=== PATIENT | female | born 1955 | race Two or more races ===

== ENCOUNTER 2016-10-18 13:51 | Emergency (ER) | payer MEDICAID ==
[~2016-10-18] VITALS: Ht 162.6 cm; Wt 77.1 kg
[2016-10-18 14:00] VITALS: BP 114/75
== END 2016-10-18 16:25 | disposition home or self-care (01) ==
LOC: ER 13:51
DX: S16.1XXA Strain of muscle, fascia and tendon at neck level, initial encounter (principal); S63.502A Unspecified sprain of left wrist, initial encounter; M17.11 Unilateral primary osteoarthritis, right knee; M47.892 Other spondylosis, cervical region; E07.89 Other specified disorders of thyroid; W01.0XXA Fall on same level from slipping, tripping and stumbling without subsequent striking against object, initial encounter; Y93.89 Activity, other specified; Y99.8 Other external cause status; Y92.009 Unspecified place in unspecified non-institutional (private) residence as the place of occurrence of the external cause
CPT/HCPCS: 72040; 73110; 73130; 73562

== ENCOUNTER 2017-03-02 15:50 | Emergency (ER) | payer MEDICAID ==
[~2017-03-02] VITALS: Ht 167.6 cm; Wt 77.1 kg
[2017-03-02 16:11] VITALS: BP 133/85
[2017-03-02] MEDS ORDERED: TETANUS-DIPTH-ACEL PERTUSSIS 0.5ML SYRG IM ONE (16:30)
[2017-03-02] MEDS ORDERED: cefTRIAXone SOD 1,000 MG VL IM ONE (16:30)
== END 2017-03-02 16:57 | disposition home or self-care (01) ==
LOC: ER 15:52
DX: S71.151A Open bite, right thigh, initial encounter (principal); L08.9 Local infection of the skin and subcutaneous tissue, unspecified; E07.9 Disorder of thyroid, unspecified; Z23 Encounter for immunization; W57.XXXA Bitten or stung by nonvenomous insect and other nonvenomous arthropods, initial encounter; Y93.89 Activity, other specified; Y99.8 Other external cause status; Y92.89 Other specified places as the place of occurrence of the external cause
CPT/HCPCS: 90471; 90715; 96372; 99284; J0696

== ENCOUNTER 2017-08-07 12:22 | Emergency (ER) | payer MEDICAID ==
[~2017-08-07] VITALS: Ht 167.6 cm; Wt 74.4 kg
[2017-08-07 12:31] VITALS: BP 146/99
[2017-08-07] MEDS ORDERED: TETRACAINE HCL 0.5% OPTH(EYE) SOLN 4ML EACHEYE ONE (15:00)
[2017-08-07] MEDS ORDERED: FLUORESCEIN SOD 1 MG TEST STRIP OP ONE (15:00)
== END 2017-08-07 15:29 | disposition home or self-care (01) ==
LOC: ER 12:22
DX: S05.01XA Injury of conjunctiva and corneal abrasion without foreign body, right eye, initial encounter (principal); R51 Headache; X58.XXXA Exposure to other specified factors, initial encounter; Y93.89 Activity, other specified; Y92.89 Other specified places as the place of occurrence of the external cause; Y99.8 Other external cause status
CPT/HCPCS: 70450; 81002; 82962

== ENCOUNTER 2018-12-28 13:34 | Inpatient (IN) | payer MEDICAID ==
[~2018-12-28] VITALS: Ht 165.1 cm; Wt 79.1 kg
[2018-12-28 14:15] LABS: Basophils # (auto) 0.1 uL; Basophils % (auto) 0.8 % (0.0-2.0); Eosinophils # (auto) 0 uL; Eosinophils % (auto) 0.5 % (0.0-7.0); Hematocrit 45.5 % (36.0-46.0); Hemoglobin 15.9 g/dL (12.2-16.2); Lymphocytes # (auto) 3.4 uL; Lymphocytes % (auto) 40.6 % (10.0-50.0); Mean Corpuscular Hemoglobin 32.8 pg (28.0-32.0); Mean Corpuscular Hgb Conc. 34.9 g/dL (32.0-36.0); Mean Corpuscular Volume 93.9 fL (80.0-100.0); Monocytes # (auto) 0.6 uL; Monocytes % (auto) 7.8 % (0.0-12.0); Neutrophils # (auto) 4.2 uL; Neutrophils % (auto) 50.3 % (37.0-80.0); Nucleated Red Blood Cells % 0.1 %; Platelet Count (auto) 283 10^3/uL (140-450); Red Blood Cells 4.84 10^6/uL (4.0-5.20); Red Cell Distribution Width 13.3 % (11.8-14.3); White Blood Cell 8.3 10^3/uL (4.4-10.8)
[2018-12-28] MEDS ORDERED: ASPirin 81 mg TAB PO ONE (14:15)
[2018-12-28 14:31] LABS: Albumin 4.6 g/dL (3.4-5.0); Anion Gap 8 (5-15); Blood Urea Nitrogen 10 mg/dL (7-18); Calcium 9.2 mg/dL (8.5-10.1); Carbon Dioxide 22 mmol/L (21-32); Chloride 107 mmol/L (98-107); Glucose 101 mg/dL (74-106); Magnesium 2.4 mg/dL (1.6-2.6); Potassium 4.2 mmol/L (3.5-5.1); Sodium 137 mmol/L (136-145)
[2018-12-28 14:33] LABS: INR 0.93 (0.9-1.15); Partial Thromboplastin Time 27.9 sec (23.78-33.04)
[2018-12-28 14:36] LABS: Alanine Aminotransferase 23 U/L (13-56); Alkaline Phosphatase 105 U/L (45-117); Aspartate Aminotransferase 21 U/L (15-37); BUN/Creatinine Ratio 13.7; Bilirubin, Total 0.4 mg/dL (0.2-1.0); GFR African American 104 mL/min; GFR Non-African American 86 mL/min; Total Protein 8.6 g/dL (6.4-8.2)
[2018-12-28] MEDS ORDERED: NITROGLYCERIN 0.4 MG SL TAB SL PRN (15:15)
[2018-12-28] MEDS ORDERED: MORPHINE SULF INJ 2 MG/ML SYRINGE 1ML IV PRN (15:15)
--- NOTE | 2018-12-28 18:03 | NUR ---
Telemetry admit from [facility] admitted to Telemetry unit after SBAR received. Patient oriented to LITZY EVANS RN primary RN, unit, room, bed, and unit policies regarding patient care and visiting hours. Patient now on continuous telemetry monitoring, tele box # 2 and telemetry reading on arrival to unit is SR 84. Patient weighed by bedscale and encouraged to call if they need something. All questions and concerns addressed, patient verbalized understanding.
[2018-12-28 18:13] VITALS: BP 143/90
[2018-12-28] MEDS ORDERED: LORazepam 2MG/ML-1ML VIAL IV PRN (20:30)
[2018-12-28] MEDS: LORazepam 0.5 MG TAB PO PRN (20:48)
[2018-12-28 21:00] VITALS: BP 123/75
[2018-12-28] MEDS: ATORVASTATIN 20 MG TAB PO SCH (23:03)
[2018-12-29 04:51] VITALS: BP 114/72
[2018-12-29 06:22] LABS: Basophils # (auto) 0 uL; Basophils % (auto) 0.7 % (0.0-2.0); Eosinophils # (auto) 0.1 uL; Hematocrit 40.3 % (36.0-46.0); Hemoglobin 14.1 g/dL (12.2-16.2); Lymphocytes # (auto) 2.3 uL; Lymphocytes % (auto) 44.4 % (10.0-50.0); Mean Corpuscular Hemoglobin 32.8 pg (28.0-32.0); Mean Corpuscular Volume 93.6 fL (80.0-100.0); Monocytes # (auto) 0.4 uL; Monocytes % (auto) 7.7 % (0.0-12.0); Neutrophils # (auto) 2.3 uL; Neutrophils % (auto) 45.2 % (37.0-80.0); Nucleated Red Blood Cells % 0.1 %; Platelet Count (auto) 249 10^3/uL (140-450); Red Blood Cells 4.31 10^6/uL (4.0-5.20); Red Cell Distribution Width 13.2 % (11.8-14.3); White Blood Cell 5.2 10^3/uL (4.4-10.8)
[2018-12-29 06:51] LABS: Potassium 3.8 mmol/L (3.5-5.1)
[2018-12-29 07:03] LABS: Albumin 3.8 g/dL (3.4-5.0); BUN/Creatinine Ratio 24.2; Bilirubin, Total 0.7 mg/dL (0.2-1.0); Calcium 8.9 mg/dL (8.5-10.1); Magnesium 2.5 mg/dL (1.6-2.6); Total Protein 7.1 g/dL (6.4-8.2)
--- NOTE | 2018-12-29 07:20 | NUR ---
OPENING SHIFT NOTE RECEIVED REPORT ON PATIENT, AWAKE AND SITTING UP IN BED. NO SIGNS OF DISTRESS AT THIS TIME. DISCUSSED POC WITH PATIENT INCLUDING PLANS FOR MRI AND ECHO. PATIENT VERBALIZED UNDERSTANDING. BED IN LOWEST LOCKED POSITION, SIDE RAILS UP X 2, CALL LIGHT WITHIN REACH. WILL CONTINUE TO MONITOR.
--- NOTE | 2018-12-29 08:57 | NUR ---
Paged Speech Therapy Paged to inform speech therapy of order for speech eval. Call was transferred to physical therapy. Spoke with Shukri who stated the patient is on the list of people speech therapist is to see today. Verbalized understanding.
[2018-12-29 09:00] VITALS: BP 119/50
[2018-12-29] MEDS: ASPirin 81 mg TAB PO SCH (09:56)
--- NOTE | 2018-12-29 10:54 | NUR ---
Patient Taken Down To MRI Patient taken down to MRI via wheelchair. PRN Ativan given.
[2018-12-29 13:00] VITALS: BP 100/63
[2018-12-29 16:56] VITALS: BP 95/68
[2018-12-29 20:00] VITALS: BP 98/53
[2018-12-29] MEDS: ATORVASTATIN 20 MG TAB PO SCH (21:15)
[2018-12-29 21:46] VITALS: BP 98/53
[2018-12-29] MEDS: LORazepam 0.5 MG TAB PO PRN (21:58)
[2018-12-30 05:01] VITALS: BP 128/72
[2018-12-30 06:21] LABS: Basophils # (auto) 0 uL; Eosinophils # (auto) 0.1 uL; Eosinophils % (auto) 2.3 % (0.0-7.0); Hematocrit 39.9 % (36.0-46.0); Hemoglobin 13.9 g/dL (12.2-16.2); Lymphocytes # (auto) 2.3 uL; Lymphocytes % (auto) 49.2 % (10.0-50.0); Mean Corpuscular Hemoglobin 32.5 pg (28.0-32.0); Mean Corpuscular Hgb Conc. 34.7 g/dL (32.0-36.0); Mean Corpuscular Volume 93.6 fL (80.0-100.0); Monocytes # (auto) 0.4 uL; Monocytes % (auto) 8.7 % (0.0-12.0); Neutrophils # (auto) 1.8 uL; Neutrophils % (auto) 38.8 % (37.0-80.0); Nucleated Red Blood Cells % 0.1 %; Platelet Count (auto) 221 10^3/uL (140-450); Red Blood Cells 4.26 10^6/uL (4.0-5.20); Red Cell Distribution Width 13.2 % (11.8-14.3); White Blood Cell 4.7 10^3/uL (4.4-10.8)
[2018-12-30 06:33] LABS: Calcium 8.9 mg/dL (8.5-10.1); Potassium 4.1 mmol/L (3.5-5.1)
[2018-12-30 06:36] LABS: BUN/Creatinine Ratio 18.8
--- NOTE | 2018-12-30 08:00 | NUR ---
ASSESSMENT NOTE PT IS ALERT ORIENTED X4, RESTING IN BED COMFORTABLY, NO DISTRESS NOTED, DENIES CHEST PAIN 0/10, MILD LEFT ARM, LEFT LEG WEAKNESS NOTED, PT CONTINUE TO HAVE SLIGHT LEFT FACIAL DROOPING, PT STATED < I AM GOT MUCH BETTER COMPARING YESTERDAY> CALL LIGHT WITHIN REACH.
[2018-12-30] MEDS: ASPirin 81 mg TAB PO SCH (08:46)
[2018-12-30 09:00] VITALS: BP 114/72
--- NOTE | 2018-12-30 09:00 | NUR ---
PT IS ABLE TO AMBULATE TO BATHROOM AND BACK TO BED NEEDED.
--- NOTE | 2018-12-30 12:00 | NUR ---
DR JAY AT BED SIDE FOLLOWING UP ON PT WITH DISCHARGE INSTRUCTION, DR JAY EMPHASIZED WITH PT TO TAKE ECOTRIN ASPIRIN AND STATIN MEDICATION, ALONG WITH EDUCATION THAT SHE NEED TO FOLLOW UP WITH HER PRIMARY FOR LAB TO CHECK ON THE LIVER BECAUSE SHE IS ON STATIN AND MAKE SURE EVERY THING IS OKAY ALSO DR JAY ENCOURAGE PT TO FOLLOW UP WITH DR FOSTER OUTPATIENT.
[2018-12-30 13:00] VITALS: BP_SYST 105; BP_SYST 97; BP_DIAS 57; BP_DIAS 64
[2018-12-30 14:01] LABS: Urine Bacteria FEW /hpf (None Seen); Urine Blood Negative /uL (Negative); Urine Specific Gravity 1.004 (1.001-1.035); Urine WBC 1 /hpf (0 - 5)
--- NOTE | 2018-12-30 14:07 | NUR ---
Discharge instructions given as ordered. Encourage to follow up with PMD as instructed. All questions and concerns addressed. Patient verbalized understanding. Medication reconciliation form completed and copy given to patient. IV removed with catheter intact, pressure dressing applied,. Telemetry unit returned to ICU. Patient taken to vehicle via wheelchair with all personal belongings, accompanied by staff and family member. No distress noted at time of departure.
== END 2018-12-30 14:05 | disposition home or self-care (01) | DRG 45 ==
LOC: ER 13:42 → TELE 14:11 → TELE-EAST 18:10
PROVIDERS: ADMIT Nurse Practitioner Acute Care; ATTEND Internal Medicine
DX: I63.9 Cerebral infarction, unspecified (principal); N17.0 Acute kidney failure with tubular necrosis; E03.9 Hypothyroidism, unspecified; E66.9 Obesity, unspecified; M17.11 Unilateral primary osteoarthritis, right knee; F41.9 Anxiety disorder, unspecified; F31.9 Bipolar disorder, unspecified; I12.9 Hypertensive chronic kidney disease with stage 1 through stage 4 chronic kidney disease, or unspecified chronic kidney disease; N18.9 Chronic kidney disease, unspecified; E78.5 Hyperlipidemia, unspecified; F17.200 Nicotine dependence, unspecified, uncomplicated; Z79.82 Long term (current) use of aspirin; Z86.73 Personal history of transient ischemic attack (TIA), and cerebral infarction without residual deficits; Z79.899 Other long term (current) drug therapy; Z82.3 Family history of stroke; Z83.3 Family history of diabetes mellitus; Z68.29 Body mass index [BMI] 29.0-29.9, adult
CPT/HCPCS: 36415; 70450; 70551; 71045; 80048; 80053; 80061; 81001; 83036; 83735; 84443; 84484; 85025; 85610; 85730; 93005; 93306; 93886; 94761; 97163; G0378

== ENCOUNTER 2019-01-30 11:01 | Emergency (ER) | payer MEDICAID ==
[~2019-01-30] VITALS: Ht 165.1 cm; Wt 77.1 kg
[2019-01-30 11:10] VITALS: BP 112/65
[2019-01-30] MEDS ORDERED: KETOROLAC TROMETH 60MG/2ML VIAL IM ONE (12:45)
== END 2019-01-30 14:00 | disposition home or self-care (01) ==
LOC: ER 11:01
DX: M10.071 Idiopathic gout, right ankle and foot (principal); I10 Essential (primary) hypertension; E78.5 Hyperlipidemia, unspecified; Z98.51 Tubal ligation status
CPT/HCPCS: 73630; 96372; 99283; J1885

== ENCOUNTER 2019-04-11 13:07 | Emergency (ER) | payer MEDICAID ==
[~2019-04-11] VITALS: Ht 162.6 cm; Wt 77.1 kg
[2019-04-11 13:13] VITALS: BP 120/84
== END 2019-04-11 16:03 | disposition left against medical advice (07) ==
LOC: EDUNIT# 13:07 → EDBD 13:07 → ER 13:07
DX: F41.9 Anxiety disorder, unspecified (principal); F32.9 Major depressive disorder, single episode, unspecified; E78.00 Pure hypercholesterolemia, unspecified; I10 Essential (primary) hypertension

== ENCOUNTER → 2019-10-27 | Emergency (ER) | payer MEDICAID ==
[~2019-10-27] VITALS: Ht 165.1 cm; Wt 77.1 kg
[2019-10-27 11:19] VITALS: BP 112/69
[2019-10-27 11:40] LABS: Basophils # (auto) 0 10 ^3/uL (0-0.2); Basophils % (auto) 0.4 % (0.0-2.0); Eosinophils # (auto) 0 10 ^3/uL (0-0.8); Eosinophils % (auto) 0.9 % (0.0-7.0); Hematocrit 41.2 % (36.0-46.0); Lymphocytes % (auto) 37.1 % (10.0-50.0); Mean Corpuscular Hemoglobin 32.3 pg (28.0-32.0); Mean Corpuscular Volume 95.1 fL (80.0-100.0); Monocytes # (auto) 0.4 10 ^3/uL (0-1.3); Monocytes % (auto) 6.6 % (0.0-12.0); Nucleated Red Blood Cells % 0.1 %; Platelet Count (auto) 275 10^3/uL (140-450); Red Blood Cells 4.33 10^6/uL (4.0-5.20); Red Cell Distribution Width 13.6 % (11.8-14.3); White Blood Cell 5.5 10^3/uL (4.4-10.8)
[2019-10-27 12:10] LABS: Alanine Aminotransferase 24 U/L (13-56); Albumin 4.1 g/dL (3.4-5.0); Anion Gap 6 (5-15); Aspartate Aminotransferase 19 U/L (15-37); BUN/Creatinine Ratio 15.9; Blood Urea Nitrogen 14 mg/dL (7-18); Calcium 9.3 mg/dL (8.5-10.1); Carbon Dioxide 24 mmol/L (21-32); Chloride 107 mmol/L (98-107); GFR African American 83 mL/min; GFR Non-African American 69 mL/min; Glucose 119 mg/dL (74-106); Potassium 4.2 mmol/L (3.5-5.1); Sodium 137 mmol/L (136-145)
[2019-10-27 12:20] LABS: Alkaline Phosphatase 74 U/L (45-117); Bilirubin, Total 0.4 mg/dL (0.2-1.0); Total Protein 7.8 g/dL (6.4-8.2)
== END | disposition home or self-care (01) ==
LOC: ER 11:08
DX: R42 Dizziness and giddiness (principal); F41.9 Anxiety disorder, unspecified; F32.9 Major depressive disorder, single episode, unspecified; E78.5 Hyperlipidemia, unspecified; I10 Essential (primary) hypertension; E03.9 Hypothyroidism, unspecified; Z86.73 Personal history of transient ischemic attack (TIA), and cerebral infarction without residual deficits
CPT/HCPCS: 36415; 70450; 71046; 80053; 82962; 84484; 85025; 93005